=== PATIENT | female | born 1955 | race Two or more races ===

== ENCOUNTER 2021-08-18 06:00 | Day surgery (SDC) | payer OTHER ==
[~2021-08-18 06:00] MED LIST: SYNTHROID88 MCG PO; ZESTRIL5 MG PO
[2021-08-18] MEDS ORDERED: DUI500 PO (09:50)
[2021-08-18] MEDS ORDERED: PERCOCET 5-3251 EACH PO (09:50)
== END 2021-08-18 15:15 | disposition home or self-care (01) ==
LOC: CIR.AMB 06:00
PROVIDERS: ATTEND Orthopaedic Surgery
DX: S82.031A Displaced transverse fracture of right patella, initial encounter for closed fracture (principal)